=== PATIENT | male | born 1985 | race Caucasian/White ===

== ENCOUNTER 2022-09-10 18:46 | Emergency (ER) | payer MEDICAID ==
[~2022-09-10] VITALS: Ht 172.7 cm; Wt 141.5 kg
[~2022-09-10 18:46] MED LIST: ACET-8386 PO
[2022-09-10 19:14] VITALS: BP 215/131
--- NOTE | 2022-09-10 20:04 | NUR ---
Dr. Felix examining patient.
--- NOTE | 2022-09-10 20:05 | NUR ---
Dr. Felix aware of his BP.
[2022-09-10] MEDS ORDERED: OFLO5SOL27 RIGHT EAR (20:16)
[2022-09-10] MEDS ORDERED: AMOX-1230 PO (20:16)
--- NOTE | 2022-09-10 20:40 | NUR ---
Patient discharged with v/s stable. Written and verbal after care instructions given and explained for Otitis Media, Ear drainage, Hypertension and Eardrum rupture. Patient alert, oriented and verbalized understanding of instructions. Ambulatory with steady gait. All questions addressed prior to discharge. ID band removed. Patient advised to follow up with PMD. Rx of Amoxicillin and Ofloxacin given. Patient educated on indication of medication including possible reaction and side effects. Opportunity to ask questions provided and answered.
== END 2022-09-10 20:40 | disposition home or self-care (01) ==
LOC: MED 18:46
DX: H72.91 Unspecified perforation of tympanic membrane, right ear (principal); H66.91 Otitis media, unspecified, right ear; H60.91 Unspecified otitis externa, right ear; I10 Essential (primary) hypertension; Z79.899 Other long term (current) drug therapy
CPT/HCPCS: 99283

== ENCOUNTER 2023-02-27 16:09 | Emergency (ER) | payer MEDICAID ==
[~2023-02-27] VITALS: Ht 172.7 cm; Wt 147.4 kg
[~2023-02-27 16:09] MED LIST changes: -ACET-8386 PO; +ACET-8905 PO; +AMOX-1230 PO; +OFLO5SOL27 RIGHT EAR
[2023-02-27 16:25] VITALS: BP 170/116
--- NOTE | 2023-02-27 16:34 | NUR ---
Patient ambulated to bed 5.
--- NOTE | 2023-02-27 16:38 | NUR ---
X-Ray at bedside
--- NOTE | 2023-02-27 16:54 | NUR ---
Lab at bedside.
--- NOTE | 2023-02-27 16:57 | NUR ---
37 y/o male bib self with c/o midsternal chest pain. Per patient, was discharged from [facility] on 02/20/23. Patient reports a new Carvedilol medication and symptoms have started since then. Patient also reports SOB, dizziness and headache. Denies any fevers or chills. Denies taking any medication for symptoms. Medical History: HTN NKDA
[2023-02-27 17:25] LABS: BASOPHILS % (AUTO) 0.3 % (0.0-2.0); EOSINOPHILS # (AUTO) 0.2 K/uL (0-0.4); HEMATOCRIT 42.3 % (36-52); HEMOGLOBIN 14.1 g/dL (12.0-18.0); LYMPHOCYTES % (AUTO) 22.6 % (20.5-51.1); MEAN CORPUSCULAR HEMOGLOBIN 30 pg (27-31); MEAN CORPUSCULAR HGB CONC 33 g/dL (33-37); MEAN CORPUSCULAR VOLUME 88.9 fL (80-94); MONOCYTES # (AUTO) 0.7 K/uL (0.8-1.0); MONOCYTES % (AUTO) 7.5 % (1.7-9.3); NEUTROPHILS % (AUTO) 67.6 % (42.2-75.2); PLATELET COUNT (AUTO) 236 K/uL (140-450); RED BLOOD CELL COUNT(AUTO) 4.76 MIL/uL (4.20-6.10); RED CELL DISTRIBUTION WIDTH 14.5 % (11.6-13.7); WHITE BLOOD COUNT (AUTO) 8.8 K/uL (4.8-10.8)
[2023-02-27 17:48] LABS: ALBUMIN 3.9 g/dL (3.4-5.0); ANION GAP 13.1 (8-16); ASPARTATE AMINOTRANSFERASE 118 U/L (15-37); CARBON DIOXIDE 29.7 mmol/L (21-32); CHLORIDE 102 mmol/L (98-107); CREATININE 1.1 mg/dL (0.6-1.3); GFR ARICAN-AMERICAN 97 mL/min (>90); GLUCOSE 115 mg/dL (74-106); POTASSIUM 3.8 mmol/L (3.5-5.1); SODIUM SERUM 141 mmol/L (136-145); TOTAL BILIRUBIN 0.4 mg/dL (0.0-1.0); UREA NITROGEN, BLOOD 20 mg/dL (7-18)
--- NOTE | 2023-02-27 19:29 | NUR ---
Report given to JAREN Michael for transfer of care.
[2023-02-27] MEDS ORDERED: KETOROLAC 30 MG/ML VIAL IM ONE (19:50)
[2023-02-27] MEDS ORDERED: AMLO5TAB PO (19:53)
--- NOTE | 2023-02-27 20:03 | NUR ---
Patient discharged with v/s stable. Written and verbal after care instructions given and explained. Patient verbalized understanding. Ambulatory with steady gait. All questions addressed prior to discharge. Advised to follow up with PMD.
== END 2023-02-27 20:03 | disposition home or self-care (01) ==
LOC: MED 16:09
DX: R07.9 Chest pain, unspecified (principal); I10 Essential (primary) hypertension; R74.01 Elevation of levels of liver transaminase levels; Z79.899 Other long term (current) drug therapy; Z79.2 Long term (current) use of antibiotics; Z79.891 Long term (current) use of opiate analgesic
CPT/HCPCS: 36415; 71045; 80053; 84484; 85025; 93005; 96372; 99285; J1885; Q0092

== ENCOUNTER 2023-02-28 16:31 | Emergency (ER) | payer MEDICAID ==
[~2023-02-28] VITALS: Ht 172.7 cm; Wt 147.4 kg
[~2023-02-28 16:31] MED LIST changes: +AMLO5TAB PO
[2023-02-28 16:40] VITALS: BP 175/87
--- NOTE | 2023-02-28 17:22 | NUR ---
37 Y/O M BIBA C/O NAUSEA AND VOMITING AND DIZZINESS SINCE THIS MORNING. WAS IN ED YESTERDAY FOR C/O HIGH BLOOD PRESSURE AND WAS SENT HOME. NKA PMH: HTN
--- NOTE | 2023-02-28 17:25 | NUR ---
LAB AT BEDSIDE.
[2023-02-28 17:33] LABS: BASOPHILS % (AUTO) 0.2 % (0.0-2.0); EOSINOPHILS % (AUTO) 0.4 % (0.0-4.0); HEMATOCRIT 45.2 % (36-52); HEMOGLOBIN 15.1 g/dL (12.0-18.0); LYMPHOCYTES % (AUTO) 8.2 % (20.5-51.1); MEAN CORPUSCULAR HEMOGLOBIN 30 pg (27-31); MEAN CORPUSCULAR HGB CONC 34 g/dL (33-37); MEAN CORPUSCULAR VOLUME 88.5 fL (80-94); MONOCYTES # (AUTO) 0.5 K/uL (0.8-1.0); MONOCYTES % (AUTO) 3.7 % (1.7-9.3); NEUTROPHILS # (AUTO) 10.9 K/uL (1.8-7.7); NEUTROPHILS % (AUTO) 87.5 % (42.2-75.2); PLATELET COUNT (AUTO) 242 K/uL (140-450); RED BLOOD CELL COUNT(AUTO) 5.11 MIL/uL (4.20-6.10); RED CELL DISTRIBUTION WIDTH 14.3 % (11.6-13.7); WHITE BLOOD COUNT (AUTO) 12.4 K/uL (4.8-10.8)
[2023-02-28 18:05] LABS: ALBUMIN 4.1 g/dL (3.4-5.0); CREATININE 1.1 mg/dL (0.6-1.3); TOTAL BILIRUBIN 0.7 mg/dL (0.0-1.0)
[2023-02-28 18:10] LABS: ANION GAP 13.7 (8-16); CARBON DIOXIDE 27.3 mmol/L (21-32)
--- NOTE | 2023-02-28 19:14 | NUR ---
Patient at CT.
--- NOTE | 2023-02-28 19:14 | NUR ---
GAVE REPORT TO LURDES ROLLINS.
--- NOTE | 2023-02-28 19:18 | NUR ---
Patient returned back from CT scan.
--- NOTE | 2023-02-28 19:29 | NUR ---
Patient resting in bed, A/Ox4, chest rise and fall symmetrical, no c/o pain or s/s of distress, on monitor.
[2023-02-28] MEDS ORDERED: NACL 0.9% 1,000 ML IV ONE (19:35)
[2023-02-28] MEDS ORDERED: ONDANSETRON 4 MG/2 ML VIAL IVP ONE (19:35)
[2023-02-28] MEDS ORDERED: MORPHINE SULFATE 4 MG/ML SYR ONE (19:42)
[2023-02-28] MEDS ORDERED: HYDROcodone/APAP 5/325 MG 1 TAB TAB PO ONE (19:45)
[2023-02-28] MEDS ORDERED: MORPHINE SULFATE 4 MG/ML SYR IVP ONE (19:45)
--- NOTE | 2023-02-28 21:26 | NUR ---
Ultrasound at bedside.
--- NOTE | 2023-02-28 22:50 | NUR ---
Patient resting in bed, A/Ox4, chest rise and fall symmetrical, no c/o pain or s/s of distress, on monitor.
--- NOTE | 2023-02-28 23:10 | NUR ---
Patient resting in bed, A/Ox4, chest rise and fall symmetrical, no s/s of distress, on monitor.
[2023-02-28] MEDS ORDERED: DICYCLOMINE HCL LIQUID 20 MG, ALUMINUM HYD/MAG/SIMETHICONE 30 ML, LIDOCAINE VISCOUS 2% ... PO ONE ×3 (23:15)
[2023-02-28] MEDS ORDERED: ALUMINUM HYD/MAG/SIMETHICONE 30 ML UDC ONE (23:55)
[2023-02-28] MEDS ORDERED: DICYCLOMINE HCL LIQUID 10 MG/5 ML UDC ONE (23:55)
--- NOTE | 2023-03-01 01:24 | NUR ---
Patient resting in bed, A/Ox4, chest rise and fall symmetrical, no c/o painor s/s of distress, on monitor.
--- NOTE | 2023-03-01 03:40 | NUR ---
Patient resting in bed, A/Ox4, chest rise and fall symmetrical, no c/o painor s/s of distress, on monitor.
[2023-03-01] MEDS ORDERED: ONDA-188 PO (03:44)
[2023-03-01] MEDS ORDERED: FAMO-90 PO (03:44)
[2023-03-01] MEDS ORDERED: ACET-10509 PO (03:44)
[2023-03-01 03:52] VITALS: BP 137/87
[2023-03-01 03:57] LABS: BARBITURATE, URINE NEGATIVE ng/ml (NEG <=200); BENZODIAZEPINE, URINE NEGATIVE ng/mL (NEG <=200); CANNABINOID, URINE NEGATIVE ng/mL (NEG <=50); COCAINE, URINE NEGATIVE ng/mL (NEG <=300); OPIATE, URINE POSITIVE ng/mL (NEG <=2000); PHENCYCLIDINE SCREEN,URINE NEGATIVE ng/mL (NEG <=25)
== END 2023-03-01 03:52 | disposition home or self-care (01) ==
LOC: MED 16:31
DX: R10.13 Epigastric pain (principal); R51.9 Headache, unspecified; R07.9 Chest pain, unspecified; F14.90 Cocaine use, unspecified, uncomplicated; R11.2 Nausea with vomiting, unspecified; I10 Essential (primary) hypertension; Z79.899 Other long term (current) drug therapy; Z72.89 Other problems related to lifestyle
CPT/HCPCS: 36415; 70450; 71275; 74174; 76705; 80053; 80305; 83690; 84484; 85025; 93005; 96361; 96374; 96375; 99285; J2270; J2405; J7030; Q0092; Q9967